=== PATIENT | female | born 1960 ===

== ENCOUNTER 2019-02-05 19:10 | Emergency (ER) | payer MEDICARE ==
[2019-02-05] MEDS ORDERED: Adacel (T-DAP) 0.5 ML SYRINGE ONE (19:50)
[2019-02-05] MEDS ORDERED: Doxycycline 100 MG CAP PO SCH (20:15)
== END 2019-02-05 20:15 | disposition home or self-care (01) ==
LOC: BURERS 19:10
DX: S61.552A Open bite of left wrist, initial encounter (principal); M06.9 Rheumatoid arthritis, unspecified; Z79.899 Other long term (current) drug therapy; Z79.52 Long term (current) use of systemic steroids; W55.01XA Bitten by cat, initial encounter
CPT/HCPCS: 90471; 90715